=== PATIENT | male | born 1960 | race Caucasian/White ===

== ENCOUNTER 2018-05-19 14:28 | Emergency (ER) | payer OTHER, MEDICAID, SELFPAY ==
[2018-05-19 14:34] VITALS: BP 174/94; PULSE 112; RESP 20; TEMP 36.2; O2SAT 100; BMI 23.3
[2018-05-19] MEDS: cloNIDine TTS 0.1 MG PATCH TOP (15:53)
--- NOTE | 2018-05-19 19:53 | ED_ITS ---
HPI - General Adult General Chief complaint: Toxicology Problem Stated complaint: COMING OFF HEROIN Time Seen by Provider: 05/19/18 15:35 Source: patient and family Mode of arrival: ambulatory Limitations: no limitations History of Present Illness HPI narrative: 58-year-old male, smoker and daily user of IV heroin states he last used yesterday and is starting to have withdrawal symptoms including agitation, nausea and headache. Patient denies any chest pain, shortness of breath or cough. He denies abdominal pain, vomiting or diarrhea. Patient and his friend whom is with him had made multiple calls and stopped that a few facilities in [place] prior to presenting here. Thus far they have been unsuccessful in getting him any help for his withdrawal type symptoms. His last attempt at rehab was about 12 Onset (ago): hour(s) Location: head and abdomen Severity: moderate Quality: aching Pain Consistency: intermittent Relieving factors: none Exacerbating factors: none Treatments prior to arrival: none Related Data Previous Rx's Medication Instructions Recorded ondansetron 4 mg PO TID-QID PRN #10 tab 05/19/18 Allergies Allergy/AdvReac Type Severity Reaction Status Date / Time No Known Drug Allergies Allergy Verified 05/19/18 14:44 Review of Systems Constitutional Denies chills, Reports difficulty sleeping, Denies fever(s), Reports headache(s), Denies lethargy and Denies weakness Eyes Denies change in vision, Denies eye discharge, Denies irritation and Denies loss of vision ENT Ears, Nose, Mouth, and Throat: Denies change in voice, Reports headache(s), Denies neck pain and Denies sore throat Cardiovascular Denies chest pain, Denies irregular heart rhythm, Denies lightheadedness, Denies palpitations, Denies dyspnea, Denies dyspnea on exertion and Denies orthopnea Respiratory Denies cough, Denies dyspnea, Denies dyspnea on exertion and Denies wheezing Gastrointestinal Gastrointestinal: Reports abdominal pain, Denies change in bowel habits, Denies diarrhea, Denies nausea and Denies vomiting Genitourinary Denies hematuria, Denies flank pain, Denies urinary incontinence and Denies urinary urgency Musculoskeletal Denies neck pain Integumentary/Breasts Denies pruritus, Denies erythema, Denies rash and Denies wounds Neurologic Denies confusion, Reports headache(s), Denies loss of vision and Denies weakness Psychiatric Denies anxiety, Denies confusion, Denies depression, Denies homicidal ideation and Denies suicidal ideation Endocrine Denies palpitations Hematologic/Lymphatic Denies easy bruising Allergic/Immunologic Denies wheezing Exam Narrative Exam Narrative: GENERAL: 58-year-old male appears older than stated age, a bit unkempt but alert and oriented HEAD: Atraumatic. Normocephalic. No temporal or scalp tenderness. EYES: Pupils equal round and reactive. Extraocular motions intact. No scleral icterus. No injection or drainage. ENT: Nose without bleeding, purulent drainage or septal hematoma. Throat without erythema, tonsillar hypertrophy or exudate. Uvula midline. Airway patent. NECK: Trachea midline. No JVD or lymphadenopathy. Supple, nontender, no meningeal signs. CARDIOVASCULAR: Regular rate and rhythm without murmurs, gallops, or rubs. RESPIRATORY: Clear to auscultation. Breath sounds equal bilaterally. No wheezes, rales, or rhonchi. GASTROINTESTINAL: Abdomen soft, non-tender, nondistended. No hepato-splenomegaly, or palpable masses. No guarding. EXTREMITIES: No clubbing, cyanosis, or edema. No joint tenderness, effusion, or edema noted. BACK: Nontender without deformity or crepitance. No flank tenderness. NEURO: AOx3. SKIN: No rash or erythema. Initial Vital Signs Initial Vital Signs: Vital Signs Temperature 97.2 F L 05/19/18 14:34 Pulse Rate 112 H 05/19/18 14:34 Respiratory Rate 20 05/19/18 14:34 Blood Pressure 174/94 H 05/19/18 14:34 Pulse Oximetry 100 05/19/18 14:34 Course Orders Ordered: Discontinued Medications Clonidine HCl (Catapres-Tts 1) 0.1 mg TOP NOW ONE Stop: 05/19/18 15:46 Last Admin: 05/19/18 15:53 Dose: 0.1 mg Reevaluation(s) Reevaluation #1: called to [facility] whom will see him tomorrow for help with withdrawal. THey ask that he arrive, motivated, and by 0600 Vital Signs - 8 hr 05/19/18 14:34 Temperature 97.2 F L Pulse Rate 112 H Respiratory Rate 20 Blood Pressure 174/94 H Pulse Oximetry 100 Discharge Plan Departure Patient Disposition: Home Clinical Impression: Opioid dependence with withdrawal Discharge Date/Time: 05/19/18 16:04 Interventions: ED Discharge Assessment Last Done: 05/19/18 16:03 Instructions: DI for Drug or Alcohol Withdrawal Activity Restrictions/Additional Instructions: *You have been diagnosed with [ opioid dependence and withdrawal] *What to do: *Take medications as directed *Follow up with [facility]. They begin seeing patients at 0530 tomorrow morning and expect to see you before 0600 *Return to ER if you should have any new, worsening or concerning symptoms Prescriptions: New ondansetron 4 mg tablet,disintegrating 4 mg PO TID-QID PRN (Reason: nausea and vomiting) Qty: 10 RF: 0 Referrals: [facility] [Outside] (Seen in ED, please consider this a referral for treatment)
== END 2018-05-19 16:04 | disposition home or self-care (01) ==
PROVIDERS: Emergency Provider Emergency Medicine
DX: F11.23 Opioid dependence with withdrawal (principal)
CPT/HCPCS: 99282